=== PATIENT | female | born 1980 | race Two or more races ===

== ENCOUNTER 2017-05-22 16:37 | Inpatient (IN) | payer OTHER ==
[~2017-05-22 16:37] MED LIST: GLYCOPYRROLATE INJ 0.4 MG/2 ML VIAL ONE; NEOSTIGMINE METHYLSULFATE 10 MG/10 ML VIAL ONE; ROCURONIUM BROMIDE INJ 50 MG/5 ML VIAL IV ONE; SUCCINYLCHOLINE CHLORIDE INJ 200 MG/10 ML VIAL ONE
--- NOTE | 2017-05-22 17:29 | ER Document Report ---
ED Medical Screen (RME) - General Chief Complaint: Vag Bleeding, +preg <12wks Stated Complaint: VAGINAL BLEEDING Time Seen by Provider: 05/22/17 17:23 Notes: Patient has the ParaGard copper IUD. Her last menstrual period was 2 weeks late so she did several home tests all of which were positive. She does think the IUD has moved. There is very light spotting and she has developed some cramps today. I have greeted and performed a rapid initial assessment of this patient. A comprehensive ED assessment and evaluation of the patient, analysis of test results and completion of the medical decision making process will be conducted by additional ED providers. TRAVEL OUTSIDE OF THE [place] IN LAST 30 DAYS: No - Related Data Allergies/Adverse Reactions: Sulfa (Sulfonamide Antibiotics) Allergy (Intermediate, Verified 05/22/17 16:38) Rash, hives Past Medical History Past Surgical History: Reports: Hx Nose Surgery - Immunizations Hx Diphtheria, Pertussis, Tetanus Vaccination: Yes Physical Exam - Vital signs Vitals: Temp Pulse Resp BP Pulse Ox 98.9 F 90 16 112/62 96 05/22/17 16:52 05/22/17 16:52 05/22/17 16:52 05/22/17 16:52 05/22/17 16:52 Course - Vital Signs Vital signs: Temp Pulse Resp BP Pulse Ox 98.9 F 90 16 112/62 96 05/22/17 16:52 05/22/17 16:52 05/22/17 16:52 05/22/17 16:52 05/22/17 16:52
[2017-05-22 18:05] LABS: ABSOLUTE EOSINOPHILS # (AUTO) 0.1 10^3/uL (0.0-0.6); ABSOLUTE LYMPHOCYTES (AUTO) 1.9 10^3/uL (0.5-4.7); ABSOLUTE MONOCYTES (AUTO) 0.6 10^3/uL (0.1-1.4); ABSOLUTE NEUT (AUTO) 6.2 10^3/uL (1.7-8.2); BASOPHILS % (AUTO) 0.3 % (0-2); EOSINOPHILS % (AUTO) 1.5 % (0-6); HEMATOCRIT 40.3 % (36.0-47.0); HEMOGLOBIN 13.2 g/dL (12.0-15.5); LYMPHOCYTES % (AUTO) 21.2 % (13-45); MEAN CORPUSCULAR HEMOGLOBIN 29.7 pg (27.0-33.4); MEAN CORPUSCULAR HGB CONC 32.8 g/dL (32.0-36.0); MEAN CORPUSCULAR VOLUME 91 fl (80-97); MONOCYTES % (AUTO) 6.3 % (3-13); PLATELET COUNT 253 10^3/uL (150-450); RED BLOOD COUNT 4.45 10^6/uL (3.72-5.28); RED CELL DISTRIBUTION WIDTH 13.6 % (11.5-14.0); SEGMENTED NEUTROPHILS % (AUTO) 70.7 % (42-78); TOTAL CELLS COUNTED % (AUTO) 100 %; WHITE BLOOD COUNT 8.8 10^3/uL (4.0-10.5)
--- NOTE | 2017-05-22 18:56 | RADIOLOGY REPORT (SQ) ---
EXAM DESCRIPTION: U/S OB TRANSVAGINAL W/O DOP COMPLETED DATE/TIME: 05/22/2017 6:35 pm REASON FOR STUDY: Paragard IUD, + hCG, cramps, bleeding COMPARISON: None. TECHNIQUE: Transvaginal static and realtime grayscale images acquired of the pelvis. Additional amita cted spectral and color Doppler images recorded. All images stored on PACs. bHCG: Pending. LIMITATIONS: None. FINDINGS: UTERUS: An intrauterine device demonstrates normal position and appearance. A rounded hyp oechoic focus is seen with a surrounding hyperechoic rim, positioned within the fundal myometrium. GESTATIONAL SAC: Yes. YOLK SAC: No. POLE: No. RIGHT ADNEXA: Ovary not identified. No adnexal free fluid. No adnexal masses. LEFT ADNEXA: Ovary not identified. No adnexal free fluid. No adnexal masses. FREE FLUID: None. OTHER: No other significant finding. IMPRESSION: Apparent early interstitial ectopic in the setting of an IUD. Beta HCG level not available at the time of interpretation. Trimester of : First - 0 to 13 weeks. COMMENT: Pertinent findings on the imaging study reported as a CRITICAL RESULT to SACHIN VIEYRA MD at18:49 on 05/22/2017. Category of Critical Result: Interstitial ectopic TECHNICAL DOCUMENTATION: JOB ID: [id number] [employer]- All Rights Reserved
--- NOTE | 2017-05-22 19:12 | ER Document Report ---
ED General - General Chief Complaint: Vag Bleeding, +preg <12wks Stated Complaint: VAGINAL BLEEDING Time Seen by Provider: 05/22/17 17:23 Notes: Patient is a 36-year-old female who presents with concerns of positive test at home despite having a ParaGard in place. Patient reports that she has had several positive tests at home and has intermittent lower abdominal pain with associated vaginal bleeding since noting those positive tests. The abdominal pain is described as an intermittent, dull, cramping pain. Nothing improves or worsens the pain. She denies any history of similar symptoms during prior pregnancies. She has not seen her OB/ [facility] regarding today's concerns. She denies any associated fever or constitutional symptoms. She has no prior history of ectopic pregnancies or pelvic inflammatory disease. TRAVEL OUTSIDE OF THE [place] IN LAST 30 DAYS: No - Related Data Allergies/Adverse Reactions: Sulfa (Sulfonamide Antibiotics) Allergy (Intermediate, Verified 05/22/17 16:38) Rash, hives Past Medical History - General Information source: Patient Last Menstrual Period: 03/17/17 - Social History Smoking Status: Former Smoker Chew tobacco use (# tins/day): No Frequency of alcohol use: None Drug Abuse: None Lives with: Spouse/Significant other Family History: Reviewed & Not Pertinent Patient has suicidal ideation: No Patient has homicidal ideation: No Renal/ Medical History: Denies: Hx Peritoneal Dialysis Past Surgical History: Reports: Hx Section, Hx Nose Surgery - Immunizations Hx Diphtheria, Pertussis, Tetanus Vaccination: Yes Review of Systems - Review of Systems Notes: Constitutional: Negative for fever. HENT: Negative for sore throat. Eyes: Negative for visual changes. Cardiovascular: Negative for chest pain. Respiratory: Negative for shortness of breath. Gastrointestinal: Positive for intermittent abdominal cramping Genitourinary: Positive for vaginal bleeding Musculoskeletal: Negative for back pain. Skin: Negative for rash. Neurological: Negative for headaches, weakness or numbness. 10 point ROS negative except as marked above and in HPI. Physical Exam - Vital signs Vitals: Temp Pulse Resp BP Pulse Ox 98.9 F 90 16 112/62 96 05/22/17 16:52 05/22/17 16:52 05/22/17 16:52 05/22/17 16:52 05/22/17 16:52 Interpretation: Normal Notes: PHYSICAL EXAMINATION: GENERAL: Well-appearing, well-nourished and in no acute distress. HEAD: Atraumatic, normocephalic. EYES: Pupils equal round and reactive to light, extraocular movements intact, sclera anicteric, conjunctiva are normal. ENT: nares patent, oropharynx clear without exudates. Moist mucous membranes. NECK: Normal range of motion, supple without lymphadenopathy LUNGS: Breath sounds clear to auscultation bilaterally and equal. No wheezes rales or rhonchi. HEART: Regular rate and rhythm without murmurs ABDOMEN: Soft, nontender, normoactive bowel sounds. No guarding, no rebound. No masses appreciated. EXTREMITIES: Normal range of motion, no pitting or edema. No cyanosis. NEUROLOGICAL: No focal neurological deficits. Moves all extremities spontaneously and on command. PSYCH: Normal mood, normal affect. SKIN: Warm, Dry, normal turgor, no rashes or lesions noted. Course - Re-evaluation Re-evalutation: 05/22/17 19:03 Patient presents with mild lower abdominal cramping, vaginal spotting in the setting of having an IUD and positive test at home. A transvaginal ultrasound shows an interstitial ectopic . I consulted with Dr. Dan the [employer] rehabilitation therapist who wishes to discuss the results with the radiologist. I have also discussed with the patient. Her abdominal exam is benign without any focal tenderness, rebound or guarding. 05/23/171999 Patient has been evaluated by [employer] who is recommending emergent exploratory laparotomy given concern for a coronal . He will hospitalize patient to take her directly to the operating room. - Vital Signs Vital signs: Temp Pulse Resp BP Pulse Ox 98.0 F 78 18 102/64 98 05/23/17 02:30 05/23/17 02:30 05/23/17 02:30 05/23/17 02:30 05/23/17 02:30 - Laboratory Result Diagrams: 05/22/17 17:45 Laboratory results interpreted by me: 05/22/17 17:45 Beta HCG, Quant 6546.00 H - Diagnostic Test Radiology reviewed: Reports reviewed Discharge - Discharge Clinical Impression: Abdominal cramping, Vaginal bleeding Ectopic Qualifiers: Location of ectopic : other location Intrauterine status: without intrauterine Qualified Code(s): O00.80 - Other ectopic without intrauterine Condition: Fair Disposition: ADMITTED INPATIENT Admitting Provider: [facility] Admitted: OR
[2017-05-22] MEDS ORDERED: ONDANSETRON HCL INJ/PF 4 MG/2 ML SDV ONE (20:46)
[2017-05-22] MEDS ORDERED: FENTANYL CITRATE INJ/PF 100 MCG/2 ML AMPUL ONE ×2 (20:46→23:03)
[2017-05-22] MEDS ORDERED: DEXAMETHASONE SOD PHOSPHATE INJ 4 MG/1 ML VIAL ONE (20:46)
[2017-05-22] MEDS ORDERED: MIDAZOLAM 2 MG/2 ML INJ ONE (20:46)
[2017-05-22] MEDS ORDERED: EPHEDRINE SULFATE INJ 50 MG/1 ML AMPULE ONE (20:46)
[2017-05-22] MEDS ORDERED: ACETAMINOPHEN 100 ML IV ONE (20:47)
[2017-05-22] MEDS ORDERED: PROPOFOL INJ 200 MG/20 ML VIAL IV ONE (20:47)
[2017-05-22] MEDS ORDERED: HYDROMORPHONE HCL INJ/PF 2 MG/ML AMPULE ONE ×2 (20:47)
[2017-05-22] MEDS ORDERED: DIPHENHYDRAMINE HCL 50 MG/ML VIAL IV PRN (21:51)
[2017-05-22] MEDS ORDERED: PROMETHAZINE HCL INJ 25 MG/1 ML VIAL IV PRN (21:51)
[2017-05-22] MEDS ORDERED: FENTANYL CITRATE INJ/PF 100 MCG/2 ML AMPUL IV PRN ×3 (21:51)
[2017-05-22] MEDS ORDERED: MEPERIDINE HCL/PF INJ 25 MG/1 ML DISP.SYRIN IV PRN (21:51)
[2017-05-22] MEDS ORDERED: KETOROLAC TROMETHAMINE INJ/PF 30 MG/1 ML SDV ONE (22:49)
--- NOTE | 2017-05-22 23:53 | HISTORY AND PHYSICAL E ---
History and Physical NAME: JEWEL STRAUSS : 1980 AGE: 36Y ADMITTED: 05/22/2017 ROOM: OR CHIEF COMPLAINT: and vaginal spotting. HISTORY OF PRESENT ILLNESS: The patient is a 36-year-old 5, para 4-0-0-4 white female with last menstrual period in early March and who is presently using ParaGard T for control. She last delivered via in July of 2016. The patient was late with her period, not having had one in April and did a home test 3 days prior to admission which was positive. She developed some light vaginal bleeding the day of admission and for this reason went to the emergency room. Evaluation there revealed stable vital signs, normal hemoglobin and hematocrit, but a quantitative HCG of 6300. Ultrasound was performed which suggested an interstitial involving the right cornual region. This finding was discussed by me with the reading radiologist, Dr. Mann. Because of this finding of a suspected right cornual immediate surgery was advised and she was admitted accordingly. PAST MEDICAL HISTORY: Reveals that she has had prior surgeries including a rhinoplasty and 2 sections performed because of a fourth degree repair with her second . ALLERGIES: SULFA. MEDICATIONS: She is presently on no medications. SOCIAL HISTORY: She does not smoke. She is Rh positive. REVIEW OF SYSTEMS: In her medical history reveals that she was diagnosed with lupus, confirmed by serology approximately 2 years ago with no end-organ compromise and had been on Plaquenil prior to her . PHYSICAL EXAMINATION: GENERAL: Showed her to be in no acute distress. VITAL SIGNS: She had normal vital signs. LUNGS: Clear. CARDIAC: Regular heart rate. ABDOMEN: Soft, flat, nontender. Had prior Pfannenstiel scars present. PELVIC: Showed IUD strong, closed cervical os, scant blood present. EXTREMITIES: Were unremarkable without significant edema. ASSESSMENT: 1. Right cornual ectopic . 2. Failed control with ParaGard T. 3. Lupus. 4. Status post section x2. PLAN: The patient is admitted at this time to undergo exploratory laparotomy with right cornual resection for her ectopic as reported on ultrasound. DICTATING PHYSICIAN: BONITA HURTADO M.D. [id number] PHY#: [id number] ID: [id number] JOB#: [id number] ACCT: [id number] cc:DEVONTE CROOK M.D. > AMILCAR
--- NOTE | 2017-05-22 23:58 | OPERATIVE REPORT E ---
Operative Report NAME: JEWEL STRAUSS : 1980 AGE: 36Y DATE OF SURGERY: 05/22/2017 ROOM: OR PREOPERATIVE DIAGNOSIS: RIGHT ECTOPIC (CORNUAL) . POSTOPERATIVE DIAGNOSIS: ABNORMAL OF INDETERMINATE LOCATION. PROCEDURE: 1. Exploratory laparotomy. 2. Lysis of adhesions. 3. The patient's ParaGard T intrauterine device was removed in the operating room preoperatively SURGEON: BONITA HURTADO M.D. ANESTHESIA: General. ESTIMATED BLOOD LOSS: 50 mL COMPLICATIONS: None. FINDINGS: The patient was noted to have dense abdominal wall adhesions involving the subcutaneous layer as well as the fascia and muscularis. On entering the abdominal pelvic cavity, bowel was freely mobile. The ovaries appeared normal with stigmata of ovulation on the right ovary and some fine periovarian adhesions. The uterus was mobile and could be lifted up through the incision. Both fallopian tubes were carefully examined and appeared normal throughout. There was no distortion of coloration or swelling of the cornual regions of the fallopian tubes bilaterally. All pelvic structures were freely mobile. DESCRIPTION OF OPERATION: The patient was prepped and draped in usual fashion under general anesthetic in the supine position. Prior to making the surgical incision, the ParaGard T IUD was removed. A small repeat Pfannenstiel incision was made. This was carried sharply and bluntly through all layers. Once the abdominal pelvic cavity was entered, this was widened with the use of Metzenbaum scissors. On entering the pelvic cavity, the pelvic structures were carefully examined with the above-mentioned findings. The most striking finding was that the cornual regions appeared normal and did not suggest a cornual ectopic . For this reason, no additional surgery was performed, and the operation terminated. The abdominal peritoneum was closed with a running 3-0 Vicryl suture, fascia with a continuous 0 interlocking Vicryl suture, subcutaneous with a running 3-0 Vicryl suture, and skin with 4-0 subcuticular Vicryl suture. There was minimal bleeding throughout. The patient tolerated the procedure well and was taken to the recovery room. DICTATING PHYSICIAN: BONITA HURTADO M.D. [id number] PHY#: [id number] ID: [id number] JOB#: [id number] ACCT: [id number] cc:BONITA HURTADO M.D. > MTDD
[2017-05-23] MEDS ORDERED: OXYCODONE-ACETAMINOPHEN 5-325 MG TABLET PO PRN (00:37)
[2017-05-23] MEDS ORDERED: RINGERS SOLUTION,LACTATED 1,000 ML IV PRN (00:38)
[2017-05-23] MEDS ORDERED: ACETAMINOPHEN 325 MG TABLET PO PRN (02:50)
[2017-05-23 05:48] LABS: HEMATOCRIT 35.4 % (36.0-47.0); HEMOGLOBIN 11.8 g/dL (12.0-15.5); MEAN CORPUSCULAR HGB CONC 33.2 g/dL (32.0-36.0); MEAN CORPUSCULAR VOLUME 90 fl (80-97); PLATELET COUNT 220 10^3/uL (150-450); RED BLOOD COUNT 3.93 10^6/uL (3.72-5.28); RED CELL DISTRIBUTION WIDTH 13.2 % (11.5-14.0); WHITE BLOOD COUNT 14.5 10^3/uL (4.0-10.5)
--- NOTE | 2017-05-23 08:19 | PDOC DISCHARGE SUMMARY ---
General - Admit/Disc Date/PCP Admission Date/Primary Care Provider: 05/22/17 21:05 DEVONTE CROOK MD - Discharge Diagnosis (1) location indetermnate Is this a current diagnosis for this admission?: Yes - Additional Information Resuscitation Status: Full Code Discharge Diet: Regular Discharge Activity: Activity As Tolerated History of Present Illness Patient complains of: with vaginal spotting History of Present Illness: JEWEL STRAUSS is a 36 year old female with LMP early March using IUD for control with positive home test. Noticed light vaginal bleeding 05/22/17. Presented tp ER where vital signs stable with normal H/H. HCG 6300 and ultrasound interpreted to show right cornual . Admitted for surgery to remove ectopic. Hospital Course Hospital Course: Taken to operating room where exploratory laparotomy revealed normal fallopian tubes bilaterally and no evidence of cornual Post op course unremarkable and patient anxious for discharge. Physical Exam - Physical Exam Vital Signs: Temp Pulse Resp BP Pulse Ox 98.0 F 78 18 102/64 98 05/23/17 02:30 05/23/17 02:30 05/23/17 02:30 05/23/17 02:30 05/23/17 02:30 Intake & Output 05/22/17 05/23/17 05/24/17 06:59 06:59 06:59 Intake Total 2775 Output Total 300 Balance 2475 Result Laboratory Results: 05/23/17 05:05 05/23/17 05/23/17 00:18 05:05 WBC 14.5 H RBC 3.93 Hgb 11.8 L Hct 35.4 L MCV 90 MCH 30.0 MCHC 33.2 RDW 13.2 Plt Count 220 Blood Type O POSITIVE Antibody Screen NEGATIVE Impressions: Obstetrics Ultrasound 05/22/17 17:23 IMPRESSION: Apparent early interstitial ectopic in the setting of an IUD. Beta HCG level not available at the time of interpretation. Trimester of : First - 0 to 13 weeks. Plan Discharge Plan: F/U in office 05/25/17 for possible repeat HCG and to schedule repeat u/s. Sent home with Tylenol only for pain as per patient request. Time Spent: Less than 30 Minutes
[2017-05-23 08:39] VITALS: BP 100/63
== END 2017-05-23 09:57 | disposition home or self-care (01) | DRG 779 ==
LOC: ER 16:37 → INOR 21:05 → 2S 23:47
PROVIDERS: ADMIT Obstetrics & Gynecology; ATTEND Obstetrics & Gynecology
PROC: 0UPDXHZ Removal of Contraceptive Device from Uterus and Cervix, External Approach (ICD-10-PCS; 2017-05-22)
PROC: 0WJJ0ZZ Inspection of Pelvic Cavity, Open Approach (ICD-10-PCS; principal; 2017-05-22 21:30)
DX: O03.9 Complete or unspecified spontaneous abortion without complication (principal); O99.89 Other specified diseases and conditions complicating pregnancy, childbirth and the puerperium; N73.6 Female pelvic peritoneal adhesions (postinfective)
CPT/HCPCS: 36415; 76817; 840; 84702; 85025; 85027; 86850; 86900; 86901; 99285; J0131; J0330; J1100; J1170; J1885; J2250; J2405; J2704; J3010; J3490